=== PATIENT | female | born 1985 | race Hispanic/Latino ===

== ENCOUNTER 2020-06-14 08:14 | Outpatient (CLI) | payer OTHER ==
--- NOTE | 2020-06-14 10:04 | ULT ---
OB ULTRASOUND: Date: 06/14/2020 HISTORY: anatomy. FINDINGS: A single, live intrauterine gestation is seen with measurements corresponding to an estimated gestati onal age of 21 weeks 1 day and FRANCES t 10/24/2020. The estimated weight measures 402 gm, or 14 oz (30% by Hadlock criteria). measurements are as follows: BPD: 4.92 cm, 21 weeks 0 days HC: 18.47 cm, 20 weeks 6 days AC: 16.06 cm, 21 weeks 2 days FL: 3.55 cm, 21 weeks 2 days heart rate measures 136 beats/minute. Placenta is anteriorly located without evidence of placenta previa. DANIELA measures 15.9 cm. Cervical length measures 4.8 cm. A three vessel cord, cord insertion, kidneys, bladder, stomach, four chamber heart, lateral louie tricles, cerebellum, lips/nose, upper/lower extremities are visualized. The sagittal spine is not sat isfactorily seen. No definite anomalies, however, are identified. IMPRESSION: Single, live intrauterine of 21 weeks and 1 day. Estimated gestational age and FRANCES at 10/24. POS: [id number]
== END 2020-06-14 08:15 | disposition home or self-care (01) ==
LOC: BICULT 08:14
PROVIDERS: ATTEND Nurse Practitioner
DX: O09.92 Supervision of high risk pregnancy, unspecified, second trimester (principal); Z3A.21 21 weeks gestation of pregnancy
CPT/HCPCS: 76805

== ENCOUNTER 2023-09-04 14:00 | Outpatient (CLI) | payer MEDICAID | END 2023-09-04 14:01 | disposition home or self-care (01) | LOC: BICULT 14:00 | PROVIDERS: ATTEND Family Medicine | DX: O09.42 Supervision of pregnancy with grand multiparity, second trimester (principal); Z3A.19 19 weeks gestation of pregnancy | CPT/HCPCS: 76805 ==